=== PATIENT | female | born 1970 | race Caucasian/White ===

== ENCOUNTER 2020-12-03 13:55 | Emergency (ER) | payer MEDICARE, OTHER, SELFPAY ==
[2020-12-03 13:55] VITALS: BP 135/94; PULSE 119; RESP 16; TEMP 37.3; O2SAT 97; BMI 36.8
[2020-12-03 14:20] VITALS: BMI 36.8
--- NOTE | 2020-12-03 14:26 | HMH.EDGENADL ---
ED Disposition Clinical Impression: Vomiting and diarrhea, Gastroenteritis Disposition: Home, Self-Care Condition on Discharge: Good Instructions: DI for Diarrhea and Traveler's Diarrhea -- Adult, DI for Diarrhea and Traveler's Diarrhea -- Child, DI for Nausea -- Adult, DI for Nausea -- Child Additional Instructions: Stay on clear liquid diet for the next 24 hours. Return to ED if new symptoms. Follow up with PCP> Prescriptions: Loperamide HCl [Imodium 2 mg capsule] 1 mg PO TID 4 Days #12 cap [id number] Ondansetron [Zofran 4mg ODT] 4 mg PO TIDP PRN 4 Days #12 tab PRN Reason: nausea Transmission Status[facility] Referrals: Francisco Harris [Primary Care Provider] - - Critical Care Critical Care Time: No Attestation: On , the high probability of a clinically significant, sudden or life threatening deterioration of the following system(s) required my full and direct attention, intervention and personal management. The time I documented below is in addition to time spent performing reported procedures but includes the following listed in this critical care notation. Medical Decision Making - Medical Records MR Comment: CT scan of the abdomen and pelvis and it was normal no acute findings.patient had normal CT. No vomiting in ED. She was given Imodium. - Sourav Inquiry Pt receiving controlled substance: No Sourav was queried for this patient: No Vital Signs: 12/03/20 13:55 Temperature 99.1 F Temperature Source Oral Pulse Rate [Right Brachial] 119 H Respiratory Rate 16 Blood Pressure [Left Arm] 135/94 H Blood Pressure Mean [Left Arm] 107 Blood Pressure Source [Left Arm] Automatic Cuff 02 Sat by Pulse Oximetry 97 Oxygen Delivery Method Room Air - Lab Data Lab Results 12/03/20 14:45: WBC 7.6, RBC 5.25, Hgb 15.3, Hct 44.6, MCV 85.0, MCH 29.1, MCHC 34.2, RDW 14.2, Plt Count 180, MPV 8.0, Neut % (Auto) 75.7, Lymph % (Auto) 15.6, [place] % (Auto) 6.8, Eos % (Auto) 1.0, Baso % (Auto) 0.9, Neut # (Auto) 5.8, Lymph # (Auto) 1.2, [place] # (Auto) 0.5, Eos # (Auto) 0.1, Baso # (Auto) 0.1 12/03/20 14:45: Sodium 134 L, Potassium 3.6, Chloride 97 L, Carbon Dioxide 22, Anion Gap 18.6 H, BUN 8, Creatinine 0.50 L, Estimated Creat Clear 207, Estimated GFR 131, Est GFR ( Amer) 158, Glucose 181 H, Calcium 9.3, Total Bilirubin 0.7, AST 32, ALT 21, Alkaline Phosphatase 105, Total Protein 9.9 H, Albumin 4.7, Globulin 5.2 H, Albumin/Globulin Ratio 0.9 L, Amylase 53, Lipase 224 Result diagrams: 12/03/20 14:45 12/03/20 14:45 Orders (Tests/Meds): ED MEDICATIONS Discontinued Medications Generic Name Dose Route Start Last Admin Trade Name Freq PRN Reason Stop Dose Admin Sodium Chloride 1,000 mls @ 999 mls/hr 12/03/20 14:30 12/03/20 14:48 Sod Chlor 0.9% 1000ml Bag IV 12/03/20 15:30 999 mls/hr .Q1H1M DHEERAJ Administration Loperamide HCl 4 mg 12/03/20 16:00 Loperamide 2mg Capsule PO 12/03/20 16:01 ONCE ONE General Adult HPI - General Chief complaint: Nausea/Vomiting/Diarrhea Stated complaint: stomach cramps, vomiting,diarrhea Time Seen by Provider: 12/03/20 14:26 Mode of Arrival: Ambulatory Limitations: No Limitations Description of Symptoms (Recalled from ER Triage Doc. by RN): Pt c/o diarrhea, vomitting, no appetite that started on Saturday night. Reports chills, denies fever. - History of Present Illness HPI narrative: 50 year old female she received immunotherapy for MS. she developed some nausea and vomiting for the past 3 days. She said the vomiting stopped the diarrhea is persistent. She denies any abdominal pain she denies any fever or chills. She denies any chest pain. - Related Data Home Medications Medication Instructions Recorded Confirmed Duloxetine HCl 60 mg PO DAILY 12/03/20 12/03/20 Empagliflozin [Jardiance] 10 mg PO DAILY 12/03/20 12/03/20 Exenatide Microspheres [Bydureon 2 mg SQ WEEKLY 11/11
[2020-12-03 14:54] LABS: Basophils # 0.1 K/mm3 (0-0.2); Basophils % 0.9 % (0.1-2.0); Eosinophils # 0.1 K/mm3 (0.0-0.4); Hematocrit 44.6 % (37.0-47.0); Hemoglobin 15.3 g/dL (12.2-16.2); Lymphocytes # 1.2 K/mm3 (0.7-4.5); Lymphocytes % 15.6 % (10-50); Mean Corpuscular HGB Conc 34.2 g/dL (31.8-35.4); Mean Corpuscular Hemoglobin 29.1 pg (27.0-31.2); Monocytes # 0.5 K/mm3 (0.1-1.0); Monocytes % 6.8 % (1.7-9.3); Neutrophils # 5.8 K/mm3 (1.8-7.8); Neutrophils % 75.7 % (37.0-80.0); Platelet Count 180 K/mm3 (142-424); Red Blood Count 5.25 M/mm3 (4.20-5.40); Red Cell Distribution Width 14.2 % (11.5-17.5); White Blood Count 7.6 K/mm3 (4.8-10.8)
[2020-12-03 15:06] LABS: Chloride 97 mmol/L (98-107)
[2020-12-03 15:07] LABS: Potassium 3.6 mmoL/L (3.5-5.1); Sodium 134 mmol/L (136-145)
[2020-12-03 15:09] LABS: Amylase 53 U/L (30-110); Blood Urea Nitrogen 8 mg/dl (7-17); Creatinine Clearance Estimated 207 mL/min (50-200); Estimated Glomerular Filt Rate 131 ml/min (>60); GFR (African American) 158 ML/MIN (>60)
[2020-12-03 15:10] LABS: Alanine Aminotransferase 21 U/L (12-78); Albumin Level 4.7 g/dl (3.5-5.0); Albumin/Globulin Ratio 0.9 (1.1-1.8); Alkaline Phosphatase 105 U/L (38-126); Anion Gap 18.6 mEq/L (5-15); Aspartate Amino Transferase 32 U/L (14-36); Bilirubin,Total 0.7 mg/dl (0.2-1.3); Calcium 9.3 mg/dl (8.4-10.2); Carbon Dioxide 22 mmol/L (22.0-30.0); Globulin 5.2 g/dL (1.3-3.2); Glucose 181 mg/dl (74-100); Lipase 224 U/L (23-300); Total Protein,Serum 9.9 g/dl (6.3-8.2)
--- NOTE | 2020-12-03 15:17 | CT_ITS ---
PROCEDURE INFORMATION: Exam: CT Abdomen And Pelvis Without Contrast Exam date and time: 12/03/2020 3:17 PM Age: 50 years old Clinical indication: Abdominal pain; Localized; Right lower quadrant (rlq); Prior surgery; Surgery date: 6+ months; Surgery type: ; Patient HX: Vomiting and diarrhea since Saturday , PT has rlq pain; Additional info: Left flank pain TECHNIQUE: Imaging protocol: Computed tomography of the abdomen and pelvis without contrast. Radiation optimization: All CT scans at this facility use at least one of these dose optimization techniques: automated exposure control; mA and/or kV adjustment per patient size (includes targeted exams where dose is matched to clinical indication); or iterative reconstruction. COMPARISON: No relevant prior studies available. FINDINGS: Liver: Normal. No mass. Gallbladder and bile ducts: Normal. No calcified stones. No ductal dilation. Pancreas: Normal. No ductal dilation. Spleen: Normal. No splenomegaly. Adrenal glands: Normal. No mass. Kidneys and ureters: No obstructive uropathy or renal calculus. Stomach and bowel: See Lymph nodes finding. Appendix: Appendix normal. Intraperitoneal space: Unremarkable. No free air. No significant fluid collection. Vasculature: Unremarkable. No abdominal aortic aneurysm. Lymph nodes: Mild pericecal inflammatory changes, with scattered mildly enlarged lymph nodes. No proximal obstruction. May be nonspecific colitis. Urinary bladder: Unremarkable as visualized. Reproductive: Unremarkable as visualized. Bones/joints: Unremarkable. No acute fracture. Soft tissues: Unremarkable. IMPRESSION: 1. No obstructive uropathy or renal calculus. 2. Mild pericecal inflammatory changes, with scattered mildly enlarged lymph nodes. No proximal obstruction. May be nonspecific colitis. 3. Appendix normal.
[2020-12-03 16:42] VITALS: BP 164/88; PULSE 114; RESP 16; TEMP 36.6; O2SAT 98
== END 2020-12-03 16:44 | disposition home or self-care (01) ==
PROVIDERS: Emergency Provider Internal Medicine; PCP Pediatrics
DX: K52.9 Noninfective gastroenteritis and colitis, unspecified (principal); E11.9 Type 2 diabetes mellitus without complications; Z79.84 Long term (current) use of oral hypoglycemic drugs
CPT/HCPCS: 74176; 80053; 82150; 83690; 85025; 96365; 96375; 99283; J1642

== ENCOUNTER 2022-01-27 11:41 | Emergency (ER) | payer MEDICARE, OTHER, SELFPAY ==
[2022-01-27 11:42] VITALS: BP 144/92; PULSE 130; RESP 18; TEMP 37; O2SAT 99; BMI 38.6
--- NOTE | 2022-01-27 11:52 | XR_ITS ---
PROCEDURE INFORMATION: Exam: XR Chest Exam date and time: 01/27/2022 12:08 PM Age: 51 years old Clinical indication: Pain; Other: Vomiting and diarrhea; Additional info: Vomiting, diarrhea TECHNIQUE: Imaging protocol: Radiologic exam of the chest. Views: 1 view. COMPARISON: CT ABDOMEN PELVIS WO CON 12/03/2020 3:25 PM FINDINGS: Tubes, catheters and devices: Right subclavian MediPort with distal tip overlying atrial caval junction. Lungs: Unremarkable. No consolidation. Pleural spaces: Unremarkable. No pleural effusion. No pneumothorax. Heart/Mediastinum: Unremarkable. No cardiomegaly. Bones/joints: Prior median sternotomy wires. Degenerative changes of the spine and shoulders. IMPRESSION: No acute infiltrate is identified.
--- NOTE | 2022-01-27 11:59 | PC.NURSE ---
XR AT BEDSIDE
[2022-01-27 12:00] LABS: Adenovirus F 40/41, stool Not Detected (NotDetected); Astrovirus Not Detected (NotDetected); Campylobacter Not Detected (NotDetected); Clostridium Difficile A/B, PCR Not Detected (NotDetected); Cryptosporidium Not Detected (NotDetected); Cyclospora Cayetanesis Not Detected (NotDetected); Entamoeba histolytica Not Detected (NotDetected); Enteroaggregative E coli Not Detected (NotDetected); Enterotoxigenic E coli Not Detected (NotDetected); Giardia lamblia Not Detected (NotDetected); Microscopic, Urine URINE MICROSCOPIC (MICROSCOPIC); Norovirus Not Detected (NotDetected); Plesimonas Shigalloides, PCR Not Detected (NotDetected); Rotavirus A Not Detected (NotDetected); Salmonella, PCR Not Detected (NotDetected); Sapovirus Not Detected (NotDetected); Shiga-like toxin E coli Not Detected (NotDetected); Shigella Enterovasive E coli Not Detected (NotDetected); Vibrio Cholerae Not Detected (NotDetected); Vibrio, PCR Not Detected (NotDetected); Yersinia Entercolitica, PCR Not Detected (NotDetected)
[2022-01-27 12:01] LABS: Appearance,Urine CLEAR (Clear); Bilirubin,Urine Negative (Negative); Blood, Urine 2+ (Negative); Color,Urine YELLOW (Yellow); Glucose,Urine (UA) 3+ (Negative); Ketones,Urine 1+ (Negative); Leukocyte Esterase,Urine Negative (Negative); Nitrate,Urine Negative (Negative); PH,Urine 5.5 (5.0-8.5); Protein,Urine Negative (Negative); Urobilinogen,Urine 0.2 EU/dl (0.2)
[2022-01-27 12:16] LABS: Bacteria,Urine Trace /lpf
--- NOTE | 2022-01-27 12:20 | PC.NURSE ---
ED MD AT BEDSIDE FOR EVALUATION
[2022-01-27 12:21] LABS: Basophils # 0.1 K/mm3 (0-0.2); Basophils % 0.7 % (0.1-2.0); Eosinophils # 0.1 K/mm3 (0.0-0.4); Eosinophils % 1.1 % (0.1-12.0); Hematocrit 46.9 % (37.0-47.0); Hemoglobin 14.9 g/dL (12.2-16.2); Lymphocytes # 0.7 K/mm3 (0.7-4.5); Lymphocytes % 5.7 % (10-50); Mean Corpuscular HGB Conc 31.7 g/dL (31.8-35.4); Mean Corpuscular Hemoglobin 27.2 pg (27.0-31.2); Mean Corpuscular Volume 85.8 fl (81-99); Mean Platelet Volume 9.6 fl (7.4-10.4); Monocytes # 0.6 K/mm3 (0.1-1.0); Monocytes % 4.7 % (1.7-9.3); Neutrophils # 11.2 K/mm3 (1.8-7.8); Neutrophils % 87.8 % (37.0-80.0); Platelet Count 226 K/mm3 (142-424); Red Blood Count 5.46 M/mm3 (4.20-5.40); Red Cell Distribution Width 15.4 % (11.5-17.5); White Blood Count 12.8 K/mm3 (4.8-10.8)
[2022-01-27 12:24] LABS: Chloride 94 mmol/L (98-107)
[2022-01-27 12:25] LABS: Potassium 4.7 mmoL/L (3.5-5.1); Sodium 133 mmol/L (136-145)
[2022-01-27 12:27] LABS: Alanine Aminotransferase 25 U/L (12-78); Alkaline Phosphatase 117 U/L (38-126); Anion Gap 18.7 mEq/L (5-15); Aspartate Amino Transferase 33 U/L (14-36); Bilirubin,Total 0.4 mg/dl (0.2-1.3); Blood Urea Nitrogen 19 mg/dl (7-17); Carbon Dioxide 25 mmol/L (22.0-30.0); Creatinine Clearance Estimated 214 mL/min (50-200); Estimated Glomerular Filt Rate 130 ml/min (>60); GFR (African American) 157 ML/MIN (>60)
[2022-01-27 12:28] LABS: Albumin Level 4.6 g/dl (3.5-5.0); Albumin/Globulin Ratio 1.2 (1.1-1.8); Globulin 3.9 g/dL (1.3-3.2); Glucose 238 mg/dl (74-100); Total Protein,Serum 8.5 g/dl (6.3-8.2)
[2022-01-27 12:30] VITALS: BP 127/78; PULSE 114; RESP 20; O2SAT 98
[2022-01-27 12:34] LABS: MANUAL DIFFERENTIAL MANUAL DIFFERENTIAL (MANUAL DIFF)
[2022-01-27 12:36] LABS: Lipase 175 U/L (23-300)
--- NOTE | 2022-01-27 12:39 | HMH.EDGENADL ---
Discharge Plan Disposition Patient Disposition: Home, Self-Care Condition: Good Prescriptions Prescriptions: New ondansetron 4 mg tablet,disintegrating 4 mg PO .q6p Qty: 12 0RF No Action prednisone 5 MG tablet 15 mg PO DAILY mycophenolate mofetil 500 MG tablet 1,500 mg PO BID rosuvastatin 20 MG tablet 20 mg PO DAILY warfarin 5 MG tablet 7.5 mg PO DAILY Rx Instructions: takes a half tablet saturday and saturday duloxetine 60 MG capsule,delayed release(DR/EC) 60 mg PO DAILY empagliflozin 10 MG tablet 10 mg PO DAILY metformin 1,000 MG tablet 1,000 mg PO BID lisinopril 10 MG tablet 10 mg PO DAILY exenatide microspheres 2 MG/0.85 ML auto-injector 2 mg SQ WEEKLY loperamide 2 MG capsule 1 mg PO TID 4 Days Qty: 12 0RF ondansetron 4 MG tablet,disintegrating 4 mg PO TIDP PRN (Reason: nausea) 4 Days Qty: 12 0RF Referrals Follow up/Referrals: Richmond Harris [Primary Care Provider] - See instructions Clinical Impressions Clinical Impression: Acute infectious diarrhea Discharge ED Provider: [facility] HPI General Chief complaint: Weakness Stated complaint: Nausea, BA, Fever, Diarreah Time Seen by Provider: 01/27/22 11:50 Mode of Arrival: Ambulatory Limitations: No Limitations Description of Symptoms (Recalled from ER Triage Doc. by RN): PT WOKE UP THIS AM WITH N/V/D. WEAKNESS, CHILLS AND LOW GRADE TEMP 100.3. DRY COUGH LAST WEEK. HX OF MYASTHENIA GRAVIS History of Present Illness HPI narrative: This is a 51-year-old female with history of myasthenia gravis who is presenting with weakness, fever, cough, vomiting and diarrhea. Patient states they were lying in bed when she had acute onset nausea and vomiting. Vomiting is nonbloody, nonbilious, associated with suprapubic and periumbilical abdominal pain that is mild and associated with vomiting. Cough is nonproductive and associated with fever of 100.4. Patient has had associated 3 watery bowel movements that were nonbloody/non-mucousy. She has tried Tylenol without much relief. Denies shortness of breath, chest pain, neurologic deficits, confusion, sick contacts, or any other concerning history. Related Data Home Medications Medication Instructions Recorded Confirmed duloxetine 60 mg capsule,delayed 60 mg PO DAILY Depression 12/03/20 12/03/20 release empagliflozin 10 mg tablet 10 mg PO DAILY DM 12/03/20 12/03/20 exenatide microspheres 2 mg/0.85 2 mg SQ WEEKLY DM 12/03/20 12/03/20 mL subcutaneous auto-injector lisinopril 10 mg tablet 10 mg PO DAILY htn 12/03/20 12/03/20 metformin 1,000 mg tablet 1,000 mg PO BID DM 12/03/20 12/03/20 mycophenolate mofetil 500 mg tablet 1,500 mg PO BID MG 12/03/20 12/03/20 prednisone 5 mg tablet 15 mg PO DAILY steriod 12/03/20 12/03/20 rosuvastatin 20 mg tablet 20 mg PO DAILY HLD 12/03/20 12/03/20 warfarin 5 mg tablet 7.5 mg PO DAILY Blood thinner 12/03/20 12/03/20 Previous Rx's Medication Instructions Recorded loperamide 2 mg capsule 1 mg PO TID 4 days #12 caps 12/03/20 ondansetron 4 mg disintegrating 4 mg PO TIDP PRN nausea 4 days #12 12/03/20 tablet tabs ondansetron 4 mg disintegrating 4 mg PO .q6p #12 tabs 01/27/22 tablet Allergies Allergy/AdvReac Type Severity Reaction Status Date / Time azathioprine Allergy Verified 12/03/20 14:49 PFSH PFSH Social History Smoking Status: Never smoker alcohol intake: never current occupational status: employed Travel in the last 8 weeks: None ROS Obtained: Yes All systems reviewed & no additional complaints except as documented Physical Exam General General appearance: alert and in no apparent distress Head Head exam: atraumatic, normocephalic and normal inspection Eye Eye exam: Present normal appearance, PERRL and EOMI ENT ENT exam: Present normal exam, normal oropharynx, mucous membranes moist, TM's normal bilaterally and normal external ear exam Neck
[2022-01-27 13:00] VITALS: BP 118/67; PULSE 116; RESP 20; O2SAT 97
[2022-01-27 13:04] LABS: Eosinophils % 1 % (0-3); Lymphocytes % 7 % (10-50); Monocytes % 1 % (2-9); Neutrophils % 91 % (42-76); Platelet Estimate Normal; RBC Morphology Normal; Total Cells Counted 100
--- NOTE | 2022-01-27 13:16 | PC.NURSE ---
PT UP TO BR, AMBULATES WITHOUT DIFFICULTY
--- NOTE | 2022-01-27 13:43 | PC.NURSE ---
ROUNDED ON PT, MEDICATED PER EMAR. PILLOW PROVIDED. NO FURTHER NEEDS AT THIS TIME. AT BEDSIDE
[2022-01-27 14:12] LABS: Enteropathogenic E coli Detected (NotDetected)
[2022-01-27 15:00] VITALS: BP 118/67; PULSE 110; RESP 18; TEMP 37; O2SAT 100
== END 2022-01-27 15:00 | disposition home or self-care (01) ==
PROVIDERS: Emergency Provider Emergency Medicine; PCP Internal Medicine
DX: G70.00 Myasthenia gravis without (acute) exacerbation (principal); R11.0 Nausea; R19.7 Diarrhea, unspecified; R50.9 Fever, unspecified; R53.1 Weakness; Z79.01 Long term (current) use of anticoagulants; Z79.1 Long term (current) use of non-steroidal anti-inflammatories (NSAID); Z79.84 Long term (current) use of oral hypoglycemic drugs; Z79.899 Other long term (current) drug therapy; Z88.8 Allergy status to other drugs, medicaments and biological substances
CPT/HCPCS: 71045; 80053; 81001; 83690; 85007; 85025; 87506; 96361; 96374; 99283; 99284; J2405

== ENCOUNTER → 2022-07-09 09:38 | Outpatient (CLI) | payer MEDICARE, OTHER, SELFPAY ==
--- NOTE | 2022-07-09 09:46 | FL_ITS ---
FINAL REPORT CLINICAL HISTORY: checked picc line placement .40 fluoro time FINDINGS: PORTAGRAM: CLINICAL HISTORY: Poorly functioning right chest port.. FINDINGS: The patient was brought to the flouroscopic suite and placed on the table in the supine position. Chest port is intact. Chest port tip terminates in the right atrium. Attempt was made to aspirate chest port without blood return. The port-a-cath was injected with IV contrast under fluoroscopic guidance. There was no evidence of leak. Injection of the port was extremely difficult and a partially occlusive fibrin sheath is suspected, although no definite fibrin sheath is seen on fluoroscopic images. Another attempt was made to aspirate blood again without blood return. The catheter was then flushed by nursing staff. IMPRESSION: Intact chest port without leak identified. Overall, patent chest port. However, chest port was difficult to inject and a partially occlusive fibrin sheath is suspected. Films reviewed , interpreted and dictated by Dr. Mcwilliams. Transcribed by Nelson Berrios PA-C. Reviewed, Interpreted and Dictated by Inés Mcwilliams MD Transcribed by GARO Elizondo Authenticated and [facility]
== END ==
PROVIDERS: PCP Internal Medicine
DX: Z45.2 Encounter for adjustment and management of vascular access device (principal)
CPT/HCPCS: 76000; 96523; J1642